=== PATIENT | female | born 1960 | race Caucasian/White ===

== ENCOUNTER → 2023-09-18 | Day surgery (SDC) | payer MEDICARE, BC ==
[~2023-09-18] MED LIST: Lidocaine PF 2% (20 MG/ML) 2 ML VIAL ONE
== END | disposition home or self-care (01) ==
LOC: MSO 08:38
DX: Z12.11 Encounter for screening for malignant neoplasm of colon (principal)
CPT/HCPCS: 00812; J2704; J7120